=== PATIENT | male | born 1950 | race African-American/Black ===

== ENCOUNTER 2018-04-08 13:11 | Emergency (ER) | payer OTHER ==
[~2018-04-08] VITALS: Ht 177.8 cm; Wt 120.5 kg
[2018-04-08 13:52] LABS: HEMATOCRIT 42.3 % (38.0-50.0); HEMOGLOBIN 14.1 G/DL (12.5-16.6); MCH 27.9 PG (29.0-34.0); MCHC 33.3 G/DL (30.0-36.0); MCV 83.8 FL (86-99); RBC DIS.WIDTH-CV 15.1 % (11.8-14.6); RBC DIS.WIDTH-SD 46.4 % (39-53); RED BLOOD COUNT 5.05 M/uL (4.00-5.50); WHITE BLOOD COUNT 8.2 K/uL (4.1-10.2)
[2018-04-08 14:20] LABS: ALBUMIN 4.1 G/DL (3.2-4.8); ALKALINE PHOSPHATASE 69 IU/L (3-129); ALT (GPT) 32 IU/L (3-49); AST (GOT) 39 IU/L (2-34); CHLORIDE 103 MEQ/L (99-109); CREATININE 1.9 MG/DL (0.6-1.3); GFR ESTIMATE (CALCULATED) 46 mL/min/ (58.99-99999); GLUCOSE 118 mg/dL (70-99); POTASSIUM 3.2 MEQ/L (3.7-5.4); SODIUM 136 MEQ/L (136-147); TOTAL BILIRUBIN 1.1 MG/DL (0.0-1.0); TOTAL PROTEIN 8.3 G/DL (6.4-8.3); UREA NITROGEN (BUN) 27 mg/dL (9-23)
[2018-04-08 14:37] LABS: PLAT.SUFFICIENCY ADEQUATE; PLATELET COUNT 207 K/uL (156-360)
[2018-04-08 17:44] LABS: APPEARANCE CLOUDY ((CLEAR)); BILIRUBIN NEGATIVE; BLOOD SMALL; COLOR AMBER ((YELLOW)); GLUCOSE (STRIP) NEGATIVE; KETONES 5; LEUKOCYTES LARGE; NITRITE NEGATIVE; PROTEIN (STRIP) 100; SPECIFIC GRAVITY 1.025 (1.000-1.030)
[2018-04-08 17:54] LABS: BACTERIA RARE /HPF; EPITHELIAL CELLS 1+ /HPF; MUCUS 3+ /LPF; RED BLOOD CELLS 0-5 /HPF (0-5); UCUL ADDED? YES; WHITE BLOOD CELLS TNTC /HPF (0-5)
[2018-04-08] MEDS ORDERED: BACTRIM,SEPT1 TABLET PO (18:47)
[2018-04-08 20:00] VITALS: BP 149/77
== END 2018-04-08 20:51 | disposition home or self-care (01) ==
LOC: EME 13:11
DX: N39.0 Urinary tract infection, site not specified (principal); R51 Headache; M81.0 Age-related osteoporosis without current pathological fracture
CPT/HCPCS: 70450; 74176; 80053; 81003; 85027; 87077; 87086; 87186; 99281; 99284; J7030